=== PATIENT | female | born 1985 | race Caucasian/White ===

== ENCOUNTER → 2019-09-07 | Outpatient (CLI) | payer BC | LOC: OD 09:42 | PROVIDERS: ATTEND Obstetrics & Gynecology | DX: O20.0 Threatened abortion (principal) | CPT/HCPCS: 36415; 84702 ==

== ENCOUNTER 2019-12-30 18:58 | Emergency (ER) | payer BC, MEDICAID ==
[2019-12-30 19:10] VITALS: BP 123/58
--- NOTE | 2019-12-30 19:32 | ER Document Report ---
ED Medical Screen (RME) - General Chief Complaint: Flu Symptoms Stated Complaint: FLU SYMPTOMS Time Seen by Provider: 12/30/19 19:27 Primary Care Provider: SHORTY FRITZ DO [Primary Care Provider] - Follow up as needed Notes: HPI: 34-year-old female who is 22 weeks presenting for nausea vomiting that began yesterday. Complains of more nausea today denies abdominal pain vaginal bleeding or discharge. States she recently worked with someone who was positive for the flu would like a flu test. Has had runny nose very slight cough and body ache but no actual fever I have greeted and performed a rapid initial assessment of this patient. A comprehensive ED assessment and evaluation of the patient, analysis of test results and completion of the medical decision making process will be conducted by additional ED providers PHYSICAL EXAMINATION: GENERAL: Well-appearing, well-nourished and in no acute distress. HEAD: Atraumatic, normocephalic. EYES: sclera anicteric, conjunctiva are normal. ENT: Moist mucous membranes. NECK: Normal range of motion LUNGS: Normal work of breathing, clear to auscultation HEART: 2+ radial pulses bilaterally, regular rate and rhythm ABD: limited by positioning for exam in triage. EXTREMITIES: no pitting or edema. No cyanosis. NEUROLOGICAL: No focal neurological deficits. Moves all extremities spontaneously and on command. PSYCH: Normal mood, normal affect. SKIN: Warm, Dry, normal turgor, no rashes or lesions noted. TRAVEL OUTSIDE OF THE [place] IN LAST 30 DAYS: No - Related Data Allergies/Adverse Reactions: Sulfa (Sulfonamide Antibiotics) Allergy (Verified 12/30/19 19:26) Home Medications: vit Physical Exam - Vital signs Vitals: Temp Pulse Resp BP Pulse Ox 98.1 F 108 H 16 123/58 L 99 12/30/19 19:12/30/19 19:09 12/30/19 19:12/30/19 19:09 12/30/19 19:09 Course - Vital Signs Vital signs: Temp Pulse Resp BP Pulse Ox 98.1 F 108 H 16 123/58 L 99 12/30/19 19:09 12/30/19 19:09 12/30/19 19:09 12/30/19 19:09 12/30/19 19:09 Doctor's Discharge - Discharge Referrals: SHORTY FRITZ DO [Primary Care Provider] - Follow up as needed
[2019-12-30 20:04] LABS: A TYPE INFLUENZA AG NEGATIVE (NEGATIVE); B INFLUENZA AG NEGATIVE (NEGATIVE)
--- NOTE | 2019-12-30 20:11 | ER Document Report ---
HPI - HPI Time Seen by Provider: 12/30/19 19:27 Pain Level: Denies Notes: Please see RME note for history and physical. 34-year-old female 22 weeks presenting with nausea and upper respiratory symptoms. Her influenza test is negative. Will discharge with symptomatic treatment, she has Zofran at home. 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 IN LAST 30 DAYS: No Course - Vital Signs Vital signs: Temp Pulse Resp BP Pulse Ox 98.1 F 108 H 16 123/58 L 99 12/30/19 19:09 12/30/19 19:09 12/30/19 19:09 12/30/19 19:09 12/30/19 19:09 Discharge - Discharge Clinical Impression: Influenza-like illness Condition: Stable Disposition: HOME, SELF-CARE Additional Instructions: Influenza test tonight was negative. Continue Zofran at home for nausea. Hydrate well at home. Follow-up PROP[employer] MACHINERY SERVICE ENGINEER for reevaluation, there should be an [employer]SION MACHINERY SERVICE ENGINEER contact center rep at all times if you do need to speak with them Forms: Return to Work Referrals: SHORTY FRITZ, [Primary Care Provider] - Follow up as needed
== END 2019-12-30 20:27 | disposition home or self-care (01) ==
LOC: ER 18:58
DX: O99.512 Diseases of the respiratory system complicating pregnancy, second trimester (principal); J11.1 Influenza due to unidentified influenza virus with other respiratory manifestations; O26.892 Other specified pregnancy related conditions, second trimester; R11.0 Nausea; Z3A.22 22 weeks gestation of pregnancy; Z87.891 Personal history of nicotine dependence
CPT/HCPCS: 87804; 99283

== ENCOUNTER 2020-05-01 05:05 | Inpatient (IN) | payer BC, MEDICAID ==
[2020-04-26 09:34] LABS: APPEARANCE,URINE CLEAR; BILIRUBIN,URINE NEGATIVE (NEGATIVE); COLOR,URINE YELLOW; GLUCOSE, URINE NEGATIVE (NEGATIVE); KETONES,URINE NEGATIVE (NEGATIVE); LEUKOCYTE ESTERASE,URINE NEGATIVE (NEGATIVE); NITRITE,URINE NEGATIVE (NEGATIVE); PROTEIN,URINE NEGATIVE (NEGATIVE); URINE SPECIFIC GRAVITY 1.006; UROBILINOGEN,URINE NEGATIVE mg/dL (<2.0)
[2020-04-26 09:37] LABS: ABSOLUTE BASOPHILS # (AUTO) 0.1 10^3/uL (0.0-0.2); ABSOLUTE EOSINOPHILS # (AUTO) 0.1 10^3/uL (0.0-0.6); ABSOLUTE LYMPHOCYTES (AUTO) 2.4 10^3/uL (0.5-4.7); ABSOLUTE MONOCYTES (AUTO) 0.5 10^3/uL (0.1-1.4); ABSOLUTE NEUT (AUTO) 5.8 10^3/uL (1.7-8.2); EOSINOPHILS % (AUTO) 0.7 % (0-6); HEMATOCRIT 37.5 % (36.0-47.0); HEMOGLOBIN 13.3 g/dL (12.0-15.5); LYMPHOCYTES % (AUTO) 26.6 % (13-45); MEAN CORPUSCULAR HEMOGLOBIN 31.2 pg (27.0-33.4); MEAN CORPUSCULAR HGB CONC 35.6 g/dL (32.0-36.0); MEAN CORPUSCULAR VOLUME 88 fl (80-97); MONOCYTES % (AUTO) 6.1 % (3-13); PLATELET COUNT 262 10^3/uL (150-450); RED BLOOD COUNT 4.27 10^6/uL (3.72-5.28); RED CELL DISTRIBUTION WIDTH 13.6 % (11.5-14.0); SEGMENTED NEUTROPHILS % (AUTO) 65.6 % (42-78); TOTAL CELLS COUNTED % (AUTO) 100 %; WHITE BLOOD COUNT 8.8 10^3/uL (4.0-10.5)
[2020-04-26 09:50] LABS: URINE AMPHETAMINES SCREEN NEGATIVE; URINE BARBITURATES SCREEN NEGATIVE; URINE BENZODIAZEPINES SCREEN NEGATIVE; URINE COCAINE SCREEN NEGATIVE; URINE MARIJUANA (THC) SCREEN NEGATIVE; URINE METHADONE SCREEN NEGATIVE; URINE PHENCYCLIDINE SCREEN NEGATIVE
[~2020-05-01 05:05] MED LIST: CEFAZOLIN 2 GM/D5W RTU 2 GM/50 ML RTUPB IV PRN; LACTATED RINGERS 1000 ML IV PRN; LIDOCAINE 0.5% INJ-PF (5 MG/ML) 50 ML SDV SUBCUT PRN; RINGERS SOLUTION,LACTATED 1,000 ML IV PRN
[2020-05-01] MEDS ORDERED: PHENYLEPHRINE HCL INJ/PF 10 MG/1 ML SDV ONE (07:11)
[2020-05-01] MEDS ORDERED: KETOROLAC TROMETHAMINE INJ/PF 30 MG/1 ML SDV ONE (07:11)
[2020-05-01] MEDS ORDERED: ACETAMINOPHEN 1,000 MG/100 ML RTUPB IV ONE (07:11)
[2020-05-01] MEDS ORDERED: ONDANSETRON HCL INJ/PF 4 MG/2 ML SDV ONE (07:11)
[2020-05-01] MEDS ORDERED: OXYTOCIN 10 UNIT/ML VIAL ONE (07:11)
[2020-05-01] MEDS ORDERED: OXYTOCIN/0.9 % SODIUM CHLORIDE 30 UNIT/500 ML RTUINJ ONE (07:11)
[2020-05-01] MEDS ORDERED: MIDAZOLAM 2 MG/2 ML INJ ONE (07:11)
[2020-05-01] MEDS ORDERED: EPHEDRINE SULFATE INJ 50 MG/1 ML AMPULE ONE (07:11)
[2020-05-01] MEDS ORDERED: FENTANYL CITRATE INJ/PF 100 MCG/2 ML AMPUL ONE (07:11)
[2020-05-01] MEDS ORDERED: FENTANYL CITRATE INJ/PF 100 MCG/2 ML AMPUL IV PRN ×3 (08:58)
[2020-05-01] MEDS ORDERED: MEPERIDINE HCL/PF INJ 25 MG/1 ML DISP.SYRIN IV PRN (08:58)
[2020-05-01] MEDS ORDERED: ONDANSETRON HCL INJ/PF 4 MG/2 ML SDV IV PRN (08:58)
[2020-05-01] MEDS ORDERED: OXYCODONE-ACETAMINOPHEN 5-325 MG TABLET PO PRN ×3 (08:58→10:10)
[2020-05-01] MEDS ORDERED: PROMETHAZINE HCL INJ 25 MG/1 ML VIAL IV PRN ×2 (08:58)
[2020-05-01] MEDS ORDERED: ACETAMINOPHEN 325 MG TABLET PO PRN (10:10)
[2020-05-01] MEDS ORDERED: DIPH/PERTUSS(ACELL)/TETANUS VAC/PF 0.5 ML SYR (>=10YO) IM PRN (10:10)
[2020-05-01] MEDS ORDERED: ACETAMINOPHEN 1,000 MG/100 ML RTUPB IV PRN (10:10)
[2020-05-01] MEDS ORDERED: OXYTOCIN/0.9 % SODIUM CHLORIDE 30 UNIT/500 ML RTUINJ IV PRN (10:10)
[2020-05-01] MEDS ORDERED: MEASLES,MUMPS&RUBELLA VACC/PF 0.5 ML VIAL SUBCUT PRN (10:10)
[2020-05-01] MEDS ORDERED: SIMETHICONE 80 MG TAB.CHEW PO PRN (10:10)
[2020-05-01] MEDS ORDERED: RINGERS SOLUTION,LACTATED 1,000 ML IV PRN (10:10)
--- NOTE | 2020-05-01 10:22 | Brief Operative Note ---
BRIEF OPERATIVE REPORT DATE OF SURGERY: 05/01/20 TIME OF SURGERY: 08:30 PREOPERATIVE DIAGNOSIS: H/o section for CPD and NRFHTs, 39+0ega, GDM, h/o hemicolectomy in 2005 POSTOPERATIVE DIAGNOSIS: Repeat cesaren section, hypertrophic scar SURGEON: ANA BONILLA FINDINGS: omental and peritoneal scarring to anterior uterine body. VMI delivered at 0841, Apgars 8/9, weight 3375g, IVF 2000ml, Uop 125ml, EBL 600ml, QBL 575ml COMPLICATIONS: None ESTIMATED BLOOD LOSS: 600ml TISSUE REMOVED OR ALTERED: placenta and cord TECHNICAL PROCEDURE: Repeat section, Scar revision
[2020-05-01] MEDS ORDERED: NALBUPHINE HCL INJ 10 MG/1 ML AMPULE ONE (10:54)
[2020-05-01] MEDS ORDERED: OXYCODONE-ACETAMINOPHEN 5-325 MG TABLET ONE (10:54)
[2020-05-01] MEDS: DIPHENHYDRAMINE HCL 50 MG/ML VIAL IV PRN ×2 (11:00→11:08)
[2020-05-01] MEDS ORDERED: DIPHENHYDRAMINE HCL 50 MG/ML VIAL ONE (11:01)
[2020-05-01] MEDS: HYDROMORPHONE HCL INJ/PF 2 MG/ML AMPULE IV PRN ×2 (13:15→19:49)
[2020-05-01] MEDS: IBUPROFEN 800 MG TABLET PO SCH ×3 (13:34→21:47)
[2020-05-01] MEDS: DOCUSATE SODIUM 100 MG CAPSULE PO SCH (18:20)
[2020-05-01] MEDS: OXYCODONE-ACETAMINOPHEN 5-325 MG TABLET PO PRN (23:26)
[2020-05-01] MEDS: PROMETHAZINE HCL INJ 25 MG/1 ML VIAL IV PRN (23:27)
--- NOTE | 2020-05-02 03:17 | Operative Report ---
Operative Report DATE OF SURGERY: 05/01/20 PREOPERATIVE DIAGNOSIS: H/o section for CPD and NRFHTs, 39+0ega, GDM, h/o hemicolectomy in 2006, hypertrophic scar POSTOPERATIVE DIAGNOSIS: NOHEMI - delivered OPERATION: Repeat section, Scar revision. SURGEON: ANA BONILLA ANESTHESIA: Spinal TISSUE REMOVED OR ALTERED: placenta and cord not sent to pathology COMPLICATIONS: none ESTIMATED BLOOD LOSS: 600 QUANTITATIVE BLOOD LOSS: 575 INTRAOPERATIVE FINDINGS: omental and peritoneal scarring to anterior uterine body. VMI delivered at 0841, Apgars 8/9, weight 3375g, IVF 2000ml, Uop 125ml, EBL 600ml, QBL 575ml PROCEDURE: Anesthesia provider: [Maulik Garcia CRNA, Yadi SOLIS] Urine output: [125ml] IV fluids: [2000ml] Indications: [34yo at 39+0ega presents for Repeat section. She had a prior section under general anesthesia for NRFHRT and CPD per patient. She desires repeat section. Her was complicated by A2GDM on metformin and she also has a history of hemicolectomy in 2005. She desires LARC for contraception. The risks, benefits, alternatives were reviewed and she desires to proceed with planned procedure.] Procedure: The patient was taken to the operating room where spinal anesthesia was obtained and found to be adequate. She was then prepped and draped in the normal sterile fashion and placed in the dorsal supine position with a leftward tilt. The prior Pfannenstiel skin incision was excised then made and carried through to the underlying layers of the fascia with the scalpel. The fascia was incised in the midline and the incision extended laterally with the Kerr scissors. The superior aspect of the fascial incision was then grasped with Abdias clamps elevated and the underlying rectus muscles dissected off [bluntly]. Attention was then turned to the inferior aspect of the fascial incision which in a similar fashion was grasped, tented up with Abdias clamps, and the rectus muscles dissected off [bluntly]. The rectus muscles were then in the midline and the peritoneum at the amount identified and entered sharply and omental adhesions to uterus and uterine adhesions to rectus muscles and fascia were removed with sharply dissection. The peritoneal incision was then extended superiorly and inferiorly with good visualization of the bladder. The bladder blade was inserted and the vesicouterine peritoneum identified grasped with [place]ian pickups and entered sharply with the Metzenbaum scissors. This incision was then extended laterally with the Metzenbaum scissors and a bladder flap created digitally. The bladder blade was then reinserted and the lower uterine segment incised in a transverse fashion with the scalpel. The uterine incision was then extended bluntly. The bladder blade was removed and the infant's head was delivered from cephalic presentation atraumatically. The nose and mouth were suctioned and the cord doubly clamped and cut. And the infant was handed off to waiting pediatricians. The placenta was then delivered spontaneously and the uterus exteriorized and cleared of all clots and debris. The uterine incision was then repaired with 1- 0 Vicryl in a running locked fashion. A second layer of the same suture was used to obtain hemostasis via imbrication of the initial layer. The bladder flap was then repaired with 3-0 chromic in a running fashion. The uterus was returned to the patient's abdomen and Interceed was placed overlying the uterine incision to prevent adhesions and surgicel was placed for hemostasis. The gutters were cleared of all clots and debris. All operative sites were noted to be hemostatic. The fascia was reapproximated with 0 Vicryl in a running fashion from each lateral edge to the midline. The skin was closed with 3-0 Monocryl in a running subcuticular fashion with overlying Dermabond for additional dressing as well as wound closure. The patient tolerated the procedure well. Sponge lap needle and instrument counts are correct times 2. 2 g of Ancef were given prior to skin incision. The patient was taken to the recovery area awake and in stable condition.
[2020-05-02] MEDS: IBUPROFEN 800 MG TABLET PO SCH ×4 (03:20→23:08)
[2020-05-02] MEDS: OXYCODONE-ACETAMINOPHEN 5-325 MG TABLET PO PRN ×2 (08:48→18:40)
[2020-05-02] MEDS: PROMETHAZINE HCL INJ 25 MG/1 ML VIAL IV PRN (08:53)
--- NOTE | 2020-05-02 09:19 | PDOC PROGRESS REPORT ---
Subjective-OB Progress Note for:: 05/02/20 - POD #1, doing well, UOB, voiding, s/p Rpt C- section, O negative, Rubella Non-immune. Physical Exam (OB) Vital Signs: Temp Pulse Resp BP Pulse Ox 98.0 F 78 16 126/62 H 99 05/02/20 07:33 05/02/20 07:33 05/02/20 07:33 05/02/20 07:33 05/02/20 07:33 Intake & Output 05/01/20 05/02/20 05/03/20 06:59 06:59 06:59 Intake Total 1560 Output Total 1400 Balance 160 - General General Appearance: Appears well, Alert In distress: None - PIH/Pre-Eclampsia DTR's: 2 + Clonus: Negative Headache: Absent Epigastric Pain: No Visual Changes: No - Dressing Removed: No Incision: Well Approximated Closure Type: Surgical Glue - Bilateral Tubal Ligation Dressing Removed: No - Lochia Lochia Amount: Scant < 10 ml Lochia Color: Rubra/Red - Abdomen Description: Soft Hernia Present: No Fundal Description: Firm Fundal Height: u/u - u/2 - Respiratory Respiratory Status: No respiratory distress - Abdominal Distension: No distension Tenderness: Nontender Abdominal Notes: +BS - Genitourinary Genitourinary Note: voiding - Extremities Upper extremity: Normal inspection Lower extremities: Normal inspection - Neurological Cognition: Normal Orientation: AAOx4 - Psychological Associated symptoms: Normal affect, Normal mood - Skin Skin Temperature: Warm Skin Moisture: Dry Objective-Diagnostic Laboratory: 04/26/20 09:01 Assessment and Plan(PN) - Assessment and Plan (1) S/P repeat low transverse Is this a current diagnosis for this admission?: Yes - Time Spent with Patient Time with patient: Less than 15 minutes Medications reviewed and adjusted accordingly: Yes - Disposition Anticipated Discharge: Home Within: within 48 hours
[2020-05-02 11:04] LABS: HEMATOCRIT 38.2 % (36.0-47.0); MEAN CORPUSCULAR HEMOGLOBIN 30.4 pg (27.0-33.4); MEAN CORPUSCULAR VOLUME 89 fl (80-97); PLATELET COUNT 243 10^3/uL (150-450); RED BLOOD COUNT 4.28 10^6/uL (3.72-5.28); RED CELL DISTRIBUTION WIDTH 14.1 % (11.5-14.0)
[2020-05-02] MEDS: DOCUSATE SODIUM 100 MG CAPSULE PO SCH ×2 (11:18→18:40)
[2020-05-02] MEDS: PRENATAL VITAMIN W DHA CAPSULE PO SCH (11:18)
[2020-05-03] MEDS: OXYCODONE-ACETAMINOPHEN 5-325 MG TABLET PO PRN ×3 (01:19→16:15)
[2020-05-03] MEDS ORDERED: ONDANSETRON 4 MG TAB.RAPDIS PO PRN (03:27)
[2020-05-03] MEDS: IBUPROFEN 800 MG TABLET PO SCH ×3 (03:47→16:15)
--- NOTE | 2020-05-03 09:17 | PDOC PROGRESS REPORT ---
Subjective-OB Progress Note for:: 05/03/20 Subjective: Doing well, no c/o, ready to go home, hsb at BS, , voiding, passing gas Physical Exam (OB) Vital Signs: Temp Pulse Resp BP Pulse Ox 98.1 F 75 18 121/68 98 05/03/20 07:50 05/03/20 07:50 05/03/20 07:50 05/03/20 07:50 05/03/20 07:50 Intake & Output 05/02/20 05/03/20 05/04/20 06:59 06:59 06:59 Intake Total 1560 1240 Output Total 1400 Balance 160 1240 - PIH/Pre-Eclampsia DTR's: 2 + Clonus: Negative Headache: Absent Epigastric Pain: No Visual Changes: No - Dressing Removed: Yes Incision: Well Approximated Closure Type: Surgical Glue - Bilateral Tubal Ligation Dressing Removed: No - Lochia Lochia Amount: Scant < 10 ml Lochia Color: Rubra/Red - Abdomen Description: Soft, Round Hernia Present: No Fundal Description: Firm, Midline Fundal Height: u/u - u/2 Objective-Diagnostic Laboratory: 05/02/20 09:03 05/02/20 09:03 WBC 11.0 H RBC 4.28 Hgb 13.0 Hct 38.2 MCV 89 MCH 30.4 MCHC 34.0 RDW 14.1 H Plt Count 243 Assessment and Plan(PN) - Assessment and Plan (1) S/P repeat low transverse Is this a current diagnosis for this admission?: Yes - Time Spent with Patient Time with patient: Less than 15 minutes Medications reviewed and adjusted accordingly: Yes - Disposition Anticipated Discharge: Home Within: within 24 hours
--- NOTE | 2020-05-03 09:22 | PDOC DISCHARGE SUMMARY ---
Impression - Admit/DC Date/PCP Admission Date/Primary Care Provider: 05/01/20 05:05 WENDY MERAZ MD Discharge Date: 05/03/20 - Discharge Diagnosis (1) S/P repeat low transverse Is this a current diagnosis for this admission?: Yes - Additional Information Resuscitation Status: Full Code Discharge Diet: As Tolerated, Regular Discharge Activity: Activity As Tolerated, No Driving, No Lifting Over 10 Pounds, No Lifting/Push/Pulling, Pelvic Rest, No tub bath Referrals: WENDY MERAZ MD [Primary Care Provider] - Prescriptions: Oxycodone HCl/Acetaminophen [Percocet 5-325 mg Tablet] 1 tab PO Q4HP PRN #20 tablet PRN Reason: Ibuprofen [Motrin 800 mg Tablet] 800 mg PO Q6A #30 tablet Home Medications: Prenat 115/Iron Fum/Folic/Dss [ 19 Tablet] 1 each PO DAILY 04/26/20 Ibuprofen [Motrin 800 mg Tablet] 800 mg PO Q6A #30 tablet 05/03/20 Oxycodone HCl/Acetaminophen [Percocet 5-325 mg Tablet] 1 tab PO Q4HP PRN #20 tablet 05/03/20 HPI Gestational Age: 39 Reason(s) for Admission: Ceasarean Section-Repeat, Gestional Diabetes Procedures: NST, Ultrasound Intrapartum Procedure(s): : Low Cervical, Transverse Hospital Course Hospital Course: post op routine Results Laboratory Results: WBC 11.0 10^3/uL (4.0-10.5) H 05/02/20 09:03 RBC 4.28 10^6/uL (3.72-5.28) 05/02/20 09:03 Hgb 13.0 g/dL (12.0-15.5) 05/02/20 09:03 Hct 38.2 % (36.0-47.0) 05/02/20 09:03 MCV 89 fl (80-97) 05/02/20 09:03 MCH 30.4 pg (27.0-33.4) 05/02/20 09:03 MCHC 34.0 g/dL (32.0-36.0) 05/02/20 09:03 RDW 14.1 % (11.5-14.0) H 05/02/20 09:03 Plt Count 243 10^3/uL (150-450) 05/02/20 09:03 Lymph % (Auto) 26.6 % (13-45) 04/26/20 09:01 [place] % (Auto) 6.1 % (3-13) 04/26/20 09:01 Eos % (Auto) 0.7 % (0-6) 04/26/20 09:01 Baso % (Auto) 1.0 % (0-2) 04/26/20 09:01 Absolute Neuts (auto) 5.8 10^3/uL (1.7-8.2) 04/26/20 09:01 Absolute Lymphs (auto) 2.4 10^3/uL (0.5-4.7) 04/26/20 09:01 Absolute Monos (auto) 0.5 10^3/uL (0.1-1.4) 04/26/20 09:01 Absolute Eos (auto) 0.1 10^3/uL (0.0-0.6) 04/26/20 09:01 Absolute Basos (auto) 0.1 10^3/uL (0.0-0.2) 04/26/20 09:01 Seg Neutrophils % 65.6 % (42-78) 04/26/20 09:01 POC Glucose 82 mg/dL (70-110) 05/01/20 05:37 Urine Color YELLOW 04/26/20 09:05 Urine Appearance CLEAR 04/26/20 09:05 Urine pH 7.0 (5.0-9.0) 04/26/20 09:05 Ur Specific [place] 1.006 04/26/20 09:05 Urine Protein NEGATIVE mg/dL (NEGATIVE) 04/26/20 09:05 Urine Glucose (UA) NEGATIVE mg/dL (NEGATIVE) 04/26/20 09:05 Urine Ketones NEGATIVE mg/dL (NEGATIVE) 04/26/20 09:05 Urine Blood NEGATIVE (NEGATIVE) 04/26/20 09:05 Urine Nitrite NEGATIVE (NEGATIVE) 04/26/20 09:05 Urine Bilirubin NEGATIVE (NEGATIVE) 04/26/20 09:05 Urine Urobilinogen NEGATIVE mg/dL (<2.0) 04/26/20 09:05 Ur Leukocyte Esterase NEGATIVE (NEGATIVE) 04/26/20 09:05 Urine WBC (Auto) 0 /HPF 04/26/20 09:05 Urine RBC (Auto) 0 /HPF 04/26/20 09:05 Squamous Epi Cells Auto 1 /HPF 04/26/20 09:05 Urine Mucus (Auto) RARE /LPF 04/26/20 09:05 Urine Ascorbic Acid NEGATIVE (NEGATIVE) 04/26/20 09:05 Urine Opiates Screen NEGATIVE 04/26/20 09:05 Urine Methadone Screen NEGATIVE 04/26/20 09:05 Ur Barbiturates Screen NEGATIVE 04/26/20 09:05 Ur Phencyclidine Scrn NEGATIVE 04/26/20 09:05 Ur Amphetamines Screen NEGATIVE 04/26/20 09:05 U Benzodiazepines Scrn NEGATIVE 04/26/20 09:05 Urine Cocaine Screen NEGATIVE 04/26/20 09:05 U Marijuana (THC) Screen NEGATIVE 04/26/20 09:05 COVID-19 Source NASOPHARYNGEAL 04/26/20 08:58 COVID-19 (ANU) NOT DETECTED 04/26/20 08:58 Blood Type O NEGATIVE 04/30/20 11:08 Antibody Screen POSITIVE 04/30/20 11:08 Antibody Identification RHOGAM INDUCED ANTI-D 04/30/20 11:08 Crossmatch See Detail 04/30/20 11:08 Plan Health Concerns: routine Plan of Treatment: home, pain meds, rev S&S to report Goals: no complications Time Spent: Less than 30 Minutes
[2020-05-03] MEDS: PRENATAL VITAMIN W DHA CAPSULE PO SCH (09:55)
[2020-05-03] MEDS: DOCUSATE SODIUM 100 MG CAPSULE PO SCH (09:57)
[2020-05-03 15:22] VITALS: BP 130/59
== END 2020-05-03 19:00 | disposition home or self-care (01) | DRG 788 ==
LOC: 2S 05:05
PROVIDERS: ADMIT Student in an Organized Health Care Education/Training Program; ATTEND Student in an Organized Health Care Education/Training Program
PROC: 10D00Z1 Extraction of Products of Conception, Low, Open Approach (ICD-10-PCS; principal; 2020-05-01)
PROC: 3E0234Z Introduction of Serum, Toxoid and Vaccine into Muscle, Percutaneous Approach (ICD-10-PCS; 2020-05-03)
DX: O34.211 Maternal care for low transverse scar from previous cesarean delivery (principal); O24.425 Gestational diabetes mellitus in childbirth, controlled by oral hypoglycemic drugs; O99.89 Other specified diseases and conditions complicating pregnancy, childbirth and the puerperium; N73.6 Female pelvic peritoneal adhesions (postinfective); O99.334 Smoking (tobacco) complicating childbirth; F17.200 Nicotine dependence, unspecified, uncomplicated; Z90.49 Acquired absence of other specified parts of digestive tract; Z37.0 Single live birth; Z03.818 Encounter for observation for suspected exposure to other biological agents ruled out; Z23 Encounter for immunization; Z88.2 Allergy status to sulfonamides
CPT/HCPCS: 1961; 36415; 59025; 80307; 81001; 82962; 85025; 85027; 86850; 86870; 86900; 86901; 86920; 86922; 87635; 90707; 90715; 94760; 94799; C9803; J0131; J0690; J1170; J1200; J1885; J2250; J2300; J2370; J2405; J2550; J2590; J3010; J3490; J7120; S0119

== ENCOUNTER → 2020-11-02 | Outpatient (CLI) | payer BC, MEDICAID ==
[~2020-11-02] MED LIST changes: -CEFAZOLIN 2 GM/D5W RTU 2 GM/50 ML RTUPB IV PRN; +COVID-19 VACCINE (PFIZER)/PF 30 MCG/0.3 ML VIAL IM ONE; +EPINEPHRINE INJ/PF 1 MG/1 ML AMPULE IM PRN; -LACTATED RINGERS 1000 ML IV PRN; -LIDOCAINE 0.5% INJ-PF (5 MG/ML) 50 ML SDV SUBCUT PRN; -RINGERS SOLUTION,LACTATED 1,000 ML IV PRN
== END ==
LOC: EMPHEALTH 07:47
PROVIDERS: ATTEND Internal Medicine
DX: Z23 Encounter for immunization (principal)
CPT/HCPCS: 91300

== ENCOUNTER → 2020-11-23 | Outpatient (CLI) | payer BC, MEDICAID | LOC: EMPHEALTH 07:42 | PROVIDERS: ATTEND Internal Medicine | DX: Z23 Encounter for immunization (principal) | CPT/HCPCS: 91300 ==